=== PATIENT | male | born 1940 | race Caucasian/White ===

== ENCOUNTER 2017-08-12 11:57 | Day surgery (SDC) | payer MEDICARE, BC ==
[2017-08-12] MEDS ORDERED: LIDOCAINE 2% MDV (20MG/ML) 20ML VIAL IV ONE (11:58)
[2017-08-12] MEDS ORDERED: PROPOFOL 10 MG/ML VIAL IV ONE (11:58)
--- NOTE | 2017-08-12 15:21 | Operative Note ---
DATE OF SURGERY: 08/12/2017 OPERATION: COLONOSCOPY with cold forceps polypectomy x2. PREOPERATIVE DIAGNOSIS: Personal history of adenomatous polyps. POSTOPERATIVE DIAGNOSES: 1. Descending colon polyps. 2. Redundant colon. PROCEDURE: After informed consent was obtained from the patient, he was placed in the left lateral decubitus position in the endoscopy suite, sedated and monitored by the department of anesthesia. Digital rectal exam was unremarkable. A well-lubricated [id number] colonoscope was inserted into the rectum and advanced to the cecum. Transabdominal pressure was required due to redundancy of the colon. Preparation quality was good. The cecum was unremarkable as was the ascending colon and transverse colon. The descending colon revealed 2 diminutive polyps each removed with a cold forceps. The sigmoid colon and rectum were unremarkable. J-turn views of the anorectum were unrevealing. The endoscope was straightened, the rectal ampulla deflated, and the endoscope was removed. RECOMMENDATIONS: I would suggest the patient resume his medications and diet. He should undergo repeat exam in 5 years pending tissue histology. As always, thank you for allowing me to participate in the healthcare of your patients. CC: DO ELISSA Espinosa
== END 2017-08-12 13:51 | disposition home or self-care (01) ==
LOC: HOP 11:57
PROVIDERS: ATTEND Internal Medicine Gastroenterology
DX: Z86.010 Personal history of colon polyps (principal); D12.4 Benign neoplasm of descending colon; Q43.8 Other specified congenital malformations of intestine

== ENCOUNTER 2017-10-07 06:34 | Day surgery (SDC) | payer MEDICARE, BC ==
[2017-10-07] MEDS ORDERED: LIDOCAINE 2% MDV (20MG/ML) 20ML VIAL IV ONE ×2 (06:35)
[2017-10-07] MEDS ORDERED: PROPOFOL 10 MG/ML VIAL IV ONE (06:35)
[2017-10-07] MEDS ORDERED: TETRACAINE HCL 0.5% 15 ML OPTH BTL OPTH ONE (06:35)
[2017-10-07] MEDS ORDERED: NEOMYCIN/POLY./DEXAM OPTH OINT OPTH ONE (06:35)
[2017-10-07] MEDS ORDERED: EPINEPHRINE 1 MG/ML AMPUL SQ ONE (06:35)
[2017-10-07] MEDS ORDERED: CIPROFLOXACIN HCL 0.0015 GM, PHENYLEPHRINE HCL 0.05 GM, KETOROLAC TROMETHAMINE 0.000625 GM MC ONE ×5 (11:30)
--- NOTE | 2017-10-07 20:49 | Operative Note ---
DATE OF PROCEDURE: 10/07/17. PREOPERATIVE DIAGNOSIS: Nuclear sclerotic cataract, left eye. POSTOPERATIVE DIAGNOSIS: Nuclear sclerotic cataract, left eye. OPERATION: Phacoemulsification of cataractous lens with implantation of intraocular lens. LENS IMPLANT USED: Lindsey Model PCB00 + 22.0l diopters. COMPLICATIONS: None. PROCEDURE IN DETAIL: Following a retrobulbar and facial block, the patient was prepped and draped in the usual fashion for eye surgery. A lid speculum was placed in the left eye after which a 2.4 mm tunnel wound was placed at the temporal limbus and dissected into clear cornea. A paracentesis was placed at 2 o'clock hours to the left and right of the initial incision and the chamber deepened with Viscoelastic. The keratome was then used to enter the anterior chamber after which the continuous circular capsulorrhexis was accomplished without difficulty using a bent needle and a Utrata forceps. Hydrodissection and hydrodelineation of the lens was performed after which the nucleus of the lens was removed using the Phaco handpiece in the [id number]-grg-[id number] technique. The residual cortical material was irrigated and aspirated from the eye after which the bag and chamber were re-examined. The bag was re-inflated with Viscoelastic and the intraocular lens injected into the capsular bag where it centered well. The Viscoelastic was then copiously irrigated and aspirated from the eye after which the temporal tunnel wound and paracentesis were hydrated and the wounds were examined. They were noted to be watertight. The lid speculum was removed from the eye and the eye patched and shielded. The patient was transferred to the recovery room in satisfactory condition and given an appointment to be reexamined in the clinic later today or as directed by Dr. Banks. JOB NUMBER: [id number] MTDD
== END 2017-10-07 09:00 | disposition home or self-care (01) ==
LOC: SUR 06:34
PROVIDERS: ATTEND Ophthalmology
DX: H25.12 Age-related nuclear cataract, left eye (principal)
CPT/HCPCS: J0171

== ENCOUNTER 2017-11-04 09:33 | Day surgery (SDC) | payer MEDICARE, BC ==
[2017-11-04] MEDS ORDERED: LIDOCAINE 2% MDV (20MG/ML) 20ML VIAL IV ONE (09:34)
[2017-11-04] MEDS ORDERED: PROPOFOL 10 MG/ML VIAL IV ONE (09:34)
[2017-11-04] MEDS ORDERED: TETRACAINE HCL 0.5% 15 ML OPTH BTL OPTH ONE (09:34)
[2017-11-04] MEDS ORDERED: EPINEPHRINE 1 MG/ML AMPUL SQ ONE (09:34)
[2017-11-04] MEDS ORDERED: NEOMYCIN/POLY./DEXAM OPTH OINT OPTH ONE (09:34)
[2017-11-04] MEDS ORDERED: CIPROFLOXACIN HCL 0.0015 GM, PHENYLEPHRINE HCL 0.05 GM, KETOROLAC TROMETHAMINE 0.000625 GM MC ONE ×5 (14:00)
--- NOTE | 2017-11-04 20:53 | OP NOTE CHAMES ---
DATE OF PROCEDURE: 11/04/17 PREOPERATIVE DIAGNOSIS: Nuclear sclerotic cataract, right eye. POSTOPERATIVE DIAGNOSIS: Nuclear sclerotic cataract, right eye. OPERATION: Phacoemulsification of cataractous lens with implantation of intraocular lens. LENS IMPLANT USED: Lindsey Model PCB00 + 21.5 diopters. COMPLICATIONS: None. PROCEDURE IN DETAIL: Following a retrobulbar and facial block, the patient was prepped and draped in the usual fashion for eye surgery. A lid speculum was placed in the right eye after which a 2.4 mm tunnel wound was placed at the temporal limbus and dissected into clear cornea. A paracentesis was placed at 2 oclock hours to the left and right of the initial incision and the chamber deepened with Viscoelastic. The keratome was then used to enter the anterior chamber after which the continuous circular capsulorrhexis was accomplished without difficulty using a bent needle and a Utrata forceps. Hydrodissection and hydrodelineation of the lens was performed after which the nucleus of the lens was removed using the Phaco handpiece in the tnfqea-ohq-hemlgdf technique. The residual cortical material was irrigated and aspirated from the eye after which the bag and chamber were re-examined. The bag was re-inflated with Viscoelastic and the intraocular lens injected into the capsular bag where it centered well. The Viscoelastic was then copiously irrigated and aspirated from the eye after which the temporal tunnel wound and paracentesis were hydrated and the wounds were examined. They were noted to be watertight. The lid speculum was removed from the eye and the eye patched and shielded. The patient was transferred to the recovery room in satisfactory condition and given an appointment to be reexamined in the clinic later today or as directed by Dr. Banks. JOB NUMBER: [id number] [facility]
== END 2017-11-04 12:05 | disposition home or self-care (01) ==
LOC: SUR 09:33
PROVIDERS: ATTEND Ophthalmology
DX: H25.11 Age-related nuclear cataract, right eye (principal); I10 Essential (primary) hypertension; G47.33 Obstructive sleep apnea (adult) (pediatric); M48.00 Spinal stenosis, site unspecified
CPT/HCPCS: J0171

== ENCOUNTER 2018-07-14 11:12 | Emergency (ER) | payer MEDICARE, BC ==
[2018-07-14] MEDS ORDERED: ASPIRIN 325 MG TABLET PO ONE (11:29)
--- NOTE | 2018-07-14 11:33 | Emergency Department Record ---
History of Present Illness - General Chief Complaint: Chest Pain Stated Complaint: CHEST PAIN/SOB/SWEATING Time Seen by Provider: 07/14/18 11:18 Source: Patient Mode of Arrival: Ambulatory Limitations: No limitations - History of Present Illness Initial Comments: The patient is here due to the acute onset of chest pain about 45 minutes prior to presenting to the ER. The pain is a L chest aching that is associated with nausea, sweating and SOB. The patient then drove himself to the ER for treatment. He has no heart history and no recent chest pains. Presently the pain is 90% resolved. At it's worst it was a 7/10 and now maybe a 1/10. The patient did take a baby ASA at home. Additionally less than an hour prior to the onset of the pain the patient did have the onset of a fairly severe headache. The pain was all over and was NOT associated with nausea, visual changes, vomiting, or balance issues. The patient state he has no hx of STUBBS's in the past and the pain now has completely resolved. It lasted less than an hour in total. MD Complaint: Chest pain Onset/Timin -: Minutes(s) Onset: During rest Pain Location: Left chest Severity: Moderate Severity scale (1-10): 7 Quality: Aching Consistency: Constant Improves With: Rest Worsens With: Exertion, Movement Treatments Prior to Arrival: Aspirin - Related Data Home Medications Medication Instructions Recorded Confirmed Last Taken Hydrochlorothiazide [Hctz] 25 mg PO Q48H 07/14/18 07/14/18 07/14/18 Allergies Allergy/AdvReac Type Severity Reaction Status Date / Time amoxicillin Allergy SWELLING Verified 10/04/17 13:18 OF THE FACE and RASH Travel Screening - Travel/Exposure Within Last 30 Days Have you traveled within the last 30 days?: No - Travel/Exposure Within Last Year Have you traveled outside the [place] in the last year?: No - Additonal Travel Details Have you been exposed to anyone with a communicable illness?: No - Travel Symptoms Symptom Screening: None Review of Systems Constitutional: Denies: Chills, Fever Eyes: Denies: Eye discharge ENT: Denies: Congestion Respiratory: Denies: Cough, Dyspnea Cardiovascular: Reports: Chest pain. Denies: Arrhythmia, Dyspnea on exertion Endocrine: Denies: Fatigue Gastrointestinal: Reports: Nausea Genitourinary: Denies: Dysuria Musculoskeletal: Denies: Arthralgia, Back pain Skin: Denies: Bruising Past Medical History - SOCIAL HISTORY Smoking Status: Never smoker Alcohol Use: None Drug Use: None - RESPIRATORY Hx Respiratory Disorders: Yes Hx Sleep Apnea: Yes Hx of CPAP: Yes - CARDIOVASCULAR Hx Cardio Disorders: Yes Hx Edema: Yes Hx Palpitations: No - NEURO Hx Neuro Disorders: No - GI Hx GI Disorders: Yes Hx Wt Loss/Wt Gain: No (denies) Hx of Polyps: Yes - Hx Genitourinary Disorders: No - ENDOCRINE Hx Endocrine Disorders: No - MUSCULOSKELETAL Hx Musculoskeletal Disorders: Yes Hx Arthritis: Yes - PSYCH Hx Psych Problems: No - HEMATOLOGY/ONCOLOGY Hx Hematology/Oncology Disorders: No Family Medical History Any Significant Family History?: No Hx Heart Disease: Father Hx HTN: Mother, Brother/Sister Hx Stroke: Father Physical Exam - General General Appearance: Alert, Oriented x3, Cooperative, No acute distress - Head Head exam: Atraumatic, Normocephalic, Normal inspection - Eye Eye exam: Normal appearance, PERRL, EOMI - ENT Throat exam: Normal inspection. negative: Tonsillar erythema, Tonsillar exudate - Neck Neck exam: Normal inspection, Full ROM. negative: Meningismus (The neck is very supple with NO meningismus.), Tenderness - Respiratory Respiratory exam: Normal lung sounds bilaterally. negative: Respiratory distress - Cardiovascular Cardiovascular Exam: Regular rate, Normal rhythm, Normal heart sounds - GI/Abdominal GI/Abdominal exam: Soft, Normal bowel sounds. negative: Tenderness - Extremities Extremities exam: Normal inspection, Full ROM, Normal capillary refill. negative: Tenderness - Back Back exam: Reports: Normal inspection - Neurological Neurological exam: Alert, Normal gait, Oriented X3. negative: Abnormal gait, Altered, Motor sensory deficit - Psychiatric Psychiatric exam: negative: Anxious Course Vital Signs 07/14/18 11:16 Temperature 97.7 F Pulse Rate 73 Respiratory 16 Rate Blood Pressure 175/88 Pulse Ox 100 - Reevaluation(s) Reevaluation #1: The patient's first EKG does demonstrate probable inferior wall ischemia. There are no reciprocal changes. The 2nd EKG is slightly improved but again is not with reciprocal changes. I did consult Dr. Tosin Lawrence from Cardiology and he believes the patient will need a stat transfer [place] [facility] [place]. I also did discuss the case with Dr. Kendrick [place] [facility] [place] and he does also agree with the plan. I then did discuss the case with Dr. Da Silva in the ER and she does accept the patient in transfer. Due to the unusual STUBBS that is now resolved I did order a stat head CT prior to the patient's Heparin bolus. 07/14/18 11:55 Reevaluation #2: The patient did have the return of some minor pain and nausea briefly that did resolve. A 3rd EKG was gone that was not significantly different from the first 2 EKG's and there was no STEMI criteria. The patient's head CT was also normal so we did give the patient a Heparin bolus and did transport him to the [place] [facility] [place] 07/14/18 12:10 Medical Decision Making - Data Complexity MDM Data: Labs Ordered and/or Reviewed, X-Ray Ordered and/or Reviewed, EKG Ordered and/or Reviewed - Lab Data Result diagrams: 07/14/18 11:20 07/14/18 11:20 - EKG Data -: EKG Interpreted by Me EKG: Abnormal EKG (very slight ST elevation in the inferior leads.) - Radiology Data Radiology results: Report reviewed (Heat CT; Neg per Radiology. CXR: Neg.) Disposition Disposition: Transfer Clinical Impression: Cardiac ischemia Disposition: Acute Care Hospital [place] [facility] [place] For Transfer: Cardiology Accepting Physician: Avinash Time Discussed w/Accepting Physician: 12:14 Condition: (2) Stable Forms: Patient Portal Access Time of Disposition: 12:14 Quality - Quality Measures Quality Measures: N/A - Blood Pressure Screening View Details: Yes Does Patient Have Any of the Following: No Blood Pressure Classification: Pre-Hypertensive BP Reading Systolic Measurement: 175 Diastolic Measurement: 88 Screening for High Blood Pressure: < Pre-Hypertensive BP, F/U Documented > [ [id number]] Pre-Hypertensive Follow-up Interventions: Referral to alternative/primary care provider.
[2018-07-14 11:40] LABS: BASO % 0.2 % (0-6); EOS % 6.1 % (0-6); GRAN % 56.8 % (47-80); HEMATOCRIT 42.6 % (42.0-52.0); HEMOGLOBIN 14.2 gm/dl (14.0-18.0); LYMPH % 29.4 % (16-45); MEAN CELL VOLUME 93.2 fl (81-97); MEAN CORPUSCULAR HEMOGLOBIN 31.1 pg (27-33); MEAN CORPUSCULAR HGB CONC 33.3 g/dl (32-36); MEAN PLATELET VOLUME 10.9 fl (7.4-10.4); MONO % 7.5 % (0-9); PLATELET COUNT 214 K/uL (130-400); RED BLOOD COUNT 4.57 M/uL (4.40-5.70); WHITE BLOOD COUNT W/O DIFF 5.9 K/uL (4.2-12.2)
[2018-07-14] MEDS ORDERED: HEPARIN SODIUM 1000 UNIT/1 ML 10ML VIAL IVP ONE (11:43)
[2018-07-14 11:54] LABS: PARTIAL THROMBOPLASTIN TIME 28.7 SECONDS (24.5-39.1); PROTHROMBIN TIME (PATIENT) 10.4 SECONDS (9.5-12.1)
[2018-07-14 11:56] LABS: BLOOD UREA NITROGEN 19 mg/dL (8-23); CREATININE 0.9 mg/dL (0.7-1.2); EST GLOMERULAR FILTRATION RATE > 60 mL/min
[2018-07-14 11:59] LABS: GLUCOSE,RANDOM 154 mg/dL (74-109)
[2018-07-14 12:01] LABS: CREATINE PHOSPHOKINASE 200 U/L (39-308)
[2018-07-14 12:03] LABS: CKMB 3.8 ng/mL (<6.73)
--- NOTE | 2018-07-17 07:34 | CT SCAN REPORT ---
DATE: 07/14/2018. EXAM: NONCONTRAST CT OF THE BRAIN. HISTORY: Vertigo and headache. TECHNIQUE: Noncontrast CT of the brain. COMPARISON: None. FINDINGS: No midline shift, mass effect, or abnormal intra- or extra-axial fluid collection. No cerebral edema, focal mass, or intracranial hemorrhage detected. Ventricle sizes appear appropriate for patient age. Basal cisterns are not effaced. The visualized paranasal sinuses and mastoid air cells are clear. No displaced calvarial fracture detected. Prominent cerumen within the external auditory canals bilaterally. IMPRESSION: ABOVE. Job Number: [id number] MTDD
--- NOTE | 2018-07-17 07:44 | RADIOLOGY REPORT ---
DATE: 07/14/2018. EXAM: PORTABLE CHEST RADIOGRAPH. HISTORY: Chest pain and dizziness. TECHNIQUE: Single frontal view of the chest. COMPARISON: Chest and rib series radiographs dated 09/01/2012. FINDINGS: Cardiac silhouette within normal size limits. The pulmonary vasculature is nondilated. No focal pulmonary consolidation. No pleural effusion or pneumothorax. IMPRESSION: NO ACUTE LUNG FINDINGS. Job Number: [id number] MTDD
== END 2018-07-14 12:17 | disposition short-term general hospital (02) ==
LOC: ER 11:12
DX: I25.9 Chronic ischemic heart disease, unspecified (principal); R06.02 Shortness of breath; R51 Headache; R42 Dizziness and giddiness
CPT/HCPCS: 70450; 71045; 80048; 82550; 82553; 84484; 85025; 85610; 85730; 93005; 93010; 96374; 99285